=== PATIENT | female | born 1995 | race African-American/Black ===

== ENCOUNTER 2016-08-06 10:29 | Emergency (ER) | payer MEDICAID ==
[~2016-08-06] VITALS: Ht 162.6 cm; Wt 68.0 kg
[~2016-08-06 10:29] MED LIST: DEPO400I IM; ERYT.5%O LEFT EYE
[2016-08-06 10:30] VITALS: BP 131/82; PULSE 101; RESP 16; TEMP 97.4; O2SAT 97
[2016-08-06] MEDS ORDERED: MORPHINE SULFATE 4 MG/ML INJ IV PUSH ONE (10:45)
[2016-08-06] MEDS ORDERED: SODIUM CHLORIDE 0.9% FLUSH 10 ML FLUSH IV FLUSH PRN (10:45)
[2016-08-06] MEDS ORDERED: ONDANSETRON HCL 4 MG/2 ML VIAL IV PUSH ONE (10:45)
[2016-08-06] MEDS ORDERED: SODIUM CHLOR 0.9% 1000 ML INJ 1,000 ML IV ONE (10:45)
--- NOTE | 2016-08-06 10:46 | PD ---
HPI Chief Complaint: Abdominal Pain Time Seen by Provider: 10:35 Travel History International Travel<30 days: No Contact w/Intl Traveler<30days: No Traveled to known affect area: No History of Present Illness HPI This is a 21-year-old female who presents to the emergency department with 2 days of abdominal pain that's been constant, severe, worse in the lower abdomen associated with multiple episodes of vomiting. She denies any fevers or chills. She denies any diarrhea. She has had some frequency and emergency. She denies any vaginal discharge. She's had one sexual partner in the past 6 months that she uses Depo-Provera. She last had a Depo-Provera injection last week. She's never had pain like this before. None of her family is sick with similar symptoms. She denies any history of abdominal surgery. PFSH Past Medical History Autoimmune Disease: No Blood Disorders: No Bipolar Disorder: Yes Developmental Delay: No Diminished Hearing: No Psychiatric: No Immunizations Current: Yes Schizophrenia: Yes ?: Not LMP: APR 2016 : 0 Para: 0 Miscarriage: 0 : 0 Past Surgical History Genitourinary Surgery: No Social History Alcohol Use: No Tobacco Use: No Substance Use: No Allergies-Medications (Allergen,Severity, Reaction): Coded Allergies: No Known Allergies (Verified , 08/06/16) Reported Meds & Prescriptions Reported Meds & Active Scripts Active Review of Systems Except as stated in HPI: all other systems reviewed are Neg Physical Exam Narrative GENERAL: Uncomfortable appearing SKIN: Warm and dry. HEAD: Atraumatic. Normocephalic. EYES: Pupils equal and round. No injection or drainage. ENT: Moist mucous membranes NECK: Trachea midline. CARDIOVASCULAR: Regular rate and rhythm. No murmur appreciated. RESPIRATORY: Clear to auscultation. Breath sounds equal bilaterally. GASTROINTESTINAL: Abdomen soft, diffusely tender to palpation with no rebound or guarding. CONE CLASSIFIER TENDER: Moderate amount of white discharge with a foul odor, tender to palpation in the bilateral adnexa and some cervical motion tenderness MUSCULOSKELETAL: No obvious deformities. NEUROLOGICAL: Awake and alert. No obvious cranial nerve deficits. Moving all extremities. PSYCHIATRIC: Appropriate mood and affect; insight and judgment normal. Data Data Last Documented VS Vital Signs Date Time Temp Pulse Resp B/P Pulse Ox O2 Delivery O2 Flow Rate FiO2 08/06/16 10:30 97.4 101 16 131/82 97 Orders Complete Blood Count With Diff (08/06/16 10:43) Comprehensive Metabolic Panel (08/06/16 10:43) Lipase (08/06/16 10:43) Urinalysis - C+S If Indicated (08/06/16 10:43) Ct Abd/Pel W Iv Contrast(Rout) (08/06/16 10:43) Iv Access Insert/Monitor (08/06/16 10:43) Ecg Monitoring (08/06/16 10:43) Oximetry (08/06/16 10:43) Sodium Chloride 0.9% Flush (Ns Flush) (08/06/16 10:45) Ed Urine Pregnancytest Poc (08/06/16 10:43) Morphine Inj (Morphine Inj) (08/06/16 10:45) Ondansetron Inj (Zofran Inj) (08/06/16 10:45) Sodium Chlor 0.9% 1000 Ml Inj (Ns 1000 M (08/06/16 10:45) Wet Prep Profile (08/06/16 10:46) Gc And Chlamydia Pcr (08/06/16 10:46) Urine Culture (08/06/16 11:15) Iohexol 350 Inj (Omnipaque 350 Inj) (08/06/16 12:16) Labs Laboratory Tests Test 08/06/16 08/06/16 08/06/16 11:05 11:15 11:36 White Blood Count 6.7 TH/MM3 Red Blood Count 4.29 MIL/MM3 Hemoglobin 13.1 GM/DL Hematocrit 38.1 % Mean Corpuscular Volume 88.7 FL Mean Corpuscular Hemoglobin 30.6 PG Mean Corpuscular Hemoglobin 34.5 % Concent Red Cell Distribution Width 13.5 % Platelet Count 237 TH/MM3 Mean Platelet Volume 8.3 FL Neutrophils (%) (Auto) 59.8 % Lymphocytes (%) (Auto) 25.8 % Monocytes (%) (Auto) 10.1 % Eosinophils (%) (Auto) 3.4 % Basophils (%) (Auto) 0.9 % Neutrophils # (Auto) 4.0 TH/MM3 Lymphocytes # (Auto) 1.7 TH/MM3 Monocytes # (Auto) 0.7 TH/MM3 Eosinophils # (Auto) 0.2 TH/MM3 Basophils # (Auto) 0.1 TH/MM3 CBC Comment DIFF FINAL Differential Comment Sodium Level 140 MEQ/L Potassium Level 3.4 MEQ/L Chloride Level 107 MEQ/L Carbon Dioxide Level 26.9 MEQ/L Anion Gap 6 MEQ/L Blood Urea Nitrogen 9 MG/DL Creatinine 0.93 MG/DL Estimat Glomerular Filtration 91 ML/MIN Rate Random Glucose 91 MG/DL Calcium Level 8.7 MG/DL Total Bilirubin 0.3 MG/DL Aspartate Amino Transf 11 U/L (AST/SGOT) Alanine Aminotransferase 15 U/L (ALT/SGPT) Alkaline Phosphatase 96 U/L Total Protein 7.1 GM/DL Albumin 3.4 GM/DL Lipase 111 U/L Urine Color YELLOW Urine Turbidity HAZY Urine pH 5.5 Urine Specific [place] 1.016 Urine Protein 30 mg/dL Urine Glucose (UA) NEG mg/dL Urine Ketones NEG mg/dL Urine Occult Blood TRACE Urine Nitrite NEG Urine Bilirubin NEG Urine Urobilinogen LESS THAN 2.0 MG/DL Urine Leukocyte Esterase NEG Urine RBC 1 /hpf Urine WBC 2 /hpf Urine Squamous Epithelial 3 /hpf Cells Urine Hyaline Casts 1 /lpf Urine Mucus FEW /lpf Microscopic Urinalysis Comment CULTURE INDICATED Clue Cells (Wet Prep) PRESENT Vaginal Trichomonas (Wet Prep) NONE SEEN Vaginal Yeast (Wet Prep) NONE SEEN MDM Medical Decision Making Medical Screen Exam Complete: Yes Emergency Medical Condition: Yes Interpretation(s) Afebrile, mild tachycardia No leukocytosis Electrolytes are reassuring Lipase is normal Urinalysis: No infection Wet prep demonstrates clue cells CT abdomen and pelvis: No acute process Differential Diagnosis Appendicitis, pelvic inflammatory disease, urinary tract infection, pyelonephritis, gastroenteritis Narrative Course This is a 21-year-old female who presents to the emergency department with abdominal pain and vomiting. She was placed on a monitor and an IV was established. Labs were obtained which were all reassuring. Urinalysis was negative for infection. Pelvic exam is concerning for pelvic inflammatory disease but she also has obvious bacterial vaginosis. CT abdomen and pelvis was negative for acute process. In the absence of an alternate explanation of the patient's symptoms I think it's reasonable to treat her for pelvic inflammatory disease. The patient will be discharged home on antibiotics. Diagnosis Primary Impression: Pelvic inflammatory disease Patient Instructions: General Instructions Additional Instructions: If you develop severe or worsening abdominal pain, fever>100.4, persistent vomiting or inability to eat or drink return to the emergency department immediately. Follow up with your primary care physician in 1-2 days for a check-up. Med/Other Pt SpecificInfo: Prescription(s) given Scripts Naproxen 500 Mg [id number] Mg PO BID PRN (PAIN SCALE 4 TO 10) #20 TAB Prov:Ciera Chaparro MD 08/06/16 Ondansetron Odt (Zofran Odt)4 Mg Tab4 Mg SL Q6HR PRN (Nausea/Vomiting) #14 TAB Ref 0 Prov:Ciera Chaparro MD 08/06/16 Doxycycline Hyclate 100 Mg Kum232 Mg PO BID #28 CAP Ref 0 Prov:Ciera Chaparro MD 08/06/16 Disposition: 01 DISCHARGE HOME Condition: Stable Ciera Chaparro MD Aug 06, 2016 10:46
[2016-08-06 11:26] LABS: BASOPHIL # 0.1 TH/MM3 (0-0.2); BASOPHIL % 0.9 % (0.0-2.0); EOSINOPHIL # 0.2 TH/MM3 (0-0.4); EOSINOPHIL % 3.4 % (0.0-4.0); HEMATOCRIT 38.1 % (35.0-46.0); HEMO FLAGS DIFF FINAL; LYMPH % 25.8 % (9.0-44.0); LYMPHOCYTE # 1.7 TH/MM3 (1.0-4.8); MEAN CELL VOLUME 88.7 FL (80.0-100.0); MEAN CORPUSCULAR HEMOGLOBIN 30.6 PG (27.0-34.0); MEAN CORPUSCULAR HGB CONC 34.5 % (32.0-36.0); MONO % 10.1 % (0.0-8.0); NEUT % 59.8 % (16.0-70.0); PLATELET COUNT 237 TH/MM3 (150-450); RED BLOOD COUNT 4.29 MIL/MM3 (4.00-5.30); RED CELL DISTRIBUTION WIDTH 13.5 % (11.6-17.2); WHITE BLOOD COUNT 6.7 TH/MM3 (4.0-11.0)
[2016-08-06 11:46] LABS: ANION GAP 6 MEQ/L (5-15); AST (GOT) 11 U/L (15-37); BICARBONATE 26.9 MEQ/L (21.0-32.0); BLOOD UREA NITROGEN 9 MG/DL (7-18); CHLORIDE 107 MEQ/L (98-107); GLOMERULAR FILTRATION RATE 91 ML/MIN (>89); POTASSIUM 3.4 MEQ/L (3.5-5.1); SODIUM (NA) 140 MEQ/L (136-145)
[2016-08-06 11:49] LABS: ALKALINE PHOSPHATASE 96 U/L (45-117); ALT (GPT) 15 U/L (10-53); TOTAL BILIRUBIN ADULT 0.3 MG/DL (0.2-1.0)
[2016-08-06 12:03] LABS: BLOOD, URINE TRACE (NEG); GLUCOSE,URINE NEG (NEG); HYALINE CAST, URINE 1 /lpf (RARE); KETONE, URINE NEG (NEG); MUCUS URINE FEW /lpf (OCC); NITRITE,URINE NEG (NEG); PH, URINE 5.5 (5.0-8.5); SQUAMOUS EPITHELIAL CELL URINE 3 /hpf (0-5); URINE COLOR YELLOW (YELLW/STRAW)
[2016-08-06 12:04] LABS: COMMENT (UR) CULTURE INDICATED; CULTURE IF INDICATED CULTURE INDICATED
[2016-08-06] MEDS ORDERED: IOHEXOL 350 MG/ML 10 ML VIAL (for RAD DIAG) IV ONE (12:16)
--- NOTE | 2016-08-06 13:01 | RADRPT ---
EXAM DATE/TIME: 08/06/2016 12:03 [facility] COMPARISON: CT ABDOMEN & PELVIS W/O CONTRAST, April 06, 2013, 5:28. INDICATIONS : Lower abdominal pain with nausea, vomiting and diarrhea. IV CONTRAST: 100 cc Omnipaque 350 (iohexol) IV ORAL CONTRAST: No oral contrast ingested. RADIATION DOSE: 9.96 CTDIvol (mGy) MEDICAL HISTORY : None SURGICAL HISTORY : None. ENCOUNTER: Initial ACUITY: 1 week PAIN SCALE: 3/10 LOCATION: Bilateral lower quadrant TECHNIQUE: Volumetric scanning of the abdomen and pelvis was performed. Using automated exposure control and ad justment of the mA and/or kV according to patient size, radiation dose was kept as low as reasonably achievable to obtain optimal diagnostic quality images. FINDINGS: LOWER LUNGS: The visualized lower lungs are clear. LIVER: Homogeneous density without lesion. There is no dilation of the biliary tree. No calcified gallston es. SPLEEN: Normal size without lesion. PANCREAS: Within normal limits. KIDNEYS: Normal in size and shape. There is no mass, stone or hydronephrosis. ADRENAL GLANDS: Within normal limits. VASCULAR: There is no aortic aneurysm. BOWEL/MESENTERY: The stomach, small bowel, and colon demonstrate no acute abnormality. There is no free intraperitone al air or fluid. ABDOMINAL WALL: Within normal limits. RETROPERITONEUM: There is no lymphadenopathy. BLADDER: No wall thickening or mass. REPRODUCTIVE: Within normal limits. INGUINAL: There is no lymphadenopathy or hernia. MUSCULOSKELETAL: Within normal limits for patient age. CONCLUSION: 1. Normal examination. Massimo Ziegler MD on August 06, 2016 at 12:55 Board Certified Radiologist. This report was verified electronically.
[2016-08-06] MEDS ORDERED: NAPR500T PO (13:17)
[2016-08-06] MEDS ORDERED: DOXY100C PO (13:17)
[2016-08-06] MEDS ORDERED: ZOFR4TAB3 SL (13:17)
[2016-08-06] MEDS ORDERED: METR-1 PO (13:23)
[2016-08-06] MEDS ORDERED: LIDOCAINE HCL 1% 50 ML VIAL IM ONE (13:30)
[2016-08-06] MEDS ORDERED: cefTRIAXone 250 MG VIAL IM ONE (13:30)
[2016-08-06 15:20] LABS: CHLAMYDIA PCR NOT DETECTED (NOT DETECT); NEISSERIA PCR NOT DETECTED (NOT DETECT)
== END 2016-08-06 14:31 | disposition home or self-care (01) ==
LOC: NEPC 10:29
DX: N73.9 Female pelvic inflammatory disease, unspecified (principal); R11.10 Vomiting, unspecified
CPT/HCPCS: 74177; 80053; 81001; 83690; 84703; 85025; 87086; 87210; 87491; 87591; 96361; 96372; 96374; 96375; 99284; J0696; J2270; J2405; J7030; Q9967

== ENCOUNTER 2017-10-22 02:15 | Emergency (ER) | payer SELFPAY ==
[~2017-10-22 02:15] MED LIST changes: -DEPO400I IM; +DOXY100C PO; -ERYT.5%O LEFT EYE; +METR-1 PO; +NAPR500T2 PO; +ZOFR4TAB3 SL
[2017-10-22 02:22] VITALS: BP 118/70; PULSE 103; RESP 16; TEMP 98.4; O2SAT 99
--- NOTE | 2017-10-22 02:46 | PD ---
HPI Chief Complaint: ENT Complaint Time Seen by Provider: 02:32 Travel History International Travel<30 days: No Contact w/Intl Traveler<30days: No Traveled to known affect area: No History of Present Illness HPI 22-year-old black female presents emergency department with complaints of sore throat and right ear pain since Tuesday. The patient states that she has not had any fever chills. No runny nose, cough or congestion. No nausea vomiting. No abdominal pain or diarrhea. No dysuria frequency. She states the pain is moderate severe. Worse with swallowing. No alleviating factors. She had taken 2 ibuprofen tablets earlier today. History Past Medical Histgory Medical History: Denies Significant Hx Tetanus Vaccination: < 5 Years LMP: 10/11/17 Past Surgical History Surgical History: No Previous Surgery Social History Alcohol Use: Yes (OCCASIONAL) Tobacco Use: No Allergies-Medications (Allergen,Severity, Reaction): Coded Allergies: No Known Allergies (Verified Adverse Reaction, Unknown, 10/22/17) Reported Meds & Prescriptions Reported Meds & Active Scripts Active No Active Prescriptions or Reported Medications Review of Systems Except as stated in HPI: all other systems reviewed are Neg Physical Exam Narrative GENERAL: Well-developed, well-nourished in no acute distress. Nontoxic appearing. HEAD: Normocephalic, atraumatic. EYES: Pupils equal round and reactive. Extraocular motions intact. No scleral icterus. No injection or drainage. ENT: The left TM is clear without erythema. the right TM is nonvisualized due to cerumen impaction. The left external auditory canals clear. The right external auditory canal has a cerumen impaction. Nose: clear . Posterior pharynx is mildly erythematous And moist. No tonsillar edema or exudate. Uvula midline. Airway patent. NECK: Trachea midline.Supple, nontender, moves head freely. No central bony tenderness or spasm. CARDIOVASCULAR: Regular rate and rhythm without murmurs, gallops, or rubs. RESPIRATORY: Clear to auscultation. Breath sounds equal bilaterally. No wheezes , rales, or rhonchi. GASTROINTESTINAL: Abdomen soft, non-tender, nondistended. No hepato-splenomegaly , or palpable masses. No guarding. EXTREMITIES: No clubbing, cyanosis, or edema. No joint tenderness, effusion, or edema noted. BACK: Nontender without deformity or crepitance. No flank tenderness. Data Data Last Documented VS Vital Signs Date Time Temp Pulse Resp B/P (MAP) Pulse Ox O2 Delivery O2 Flow Rate FiO2 10/22/17 02:22 98.4 103 16 118/70 (86) 99 MDM Medical Screen Exam Complete: Yes Emergency Medical Condition: No Differential Diagnosis Differential diagnosis: Viral pharyngitis, strep throat, otitis media, otitis externa, cerumen impaction Narrative Course A medical screening exam was performed: At the time of evaluation the presenting medical condition was determined not to be of an emergent nature. The patient was given the option of receiving additional care, but declined. Patient was given options for additional community resources from which to obtain care. The Patient Has Been advised to seek medical attention for their presenting complaint. The patient has been advised to return to the ER at any time if an emergent condition develops. Primary Impression: Encounter for medical screening examination Scripts No Active Prescriptions or Reported Meds Condition: Stable Emmanuel Oconnell Oct 22, 2017 02:46
== END 2017-10-22 02:48 | disposition left against medical advice (07) ==
LOC: NEPD 02:15
DX: R07.0 Pain in throat (principal); H92.01 Otalgia, right ear
CPT/HCPCS: 99281